=== PATIENT | male | born 1995 | race Caucasian/White ===

== ENCOUNTER 2020-08-09 03:23 | Emergency (ER) | payer SELFPAY ==
[~2020-08-09] VITALS: Ht 188 cm; Wt 74.8 kg
[2020-08-09] MEDS ORDERED: LORazepam 2MG/ML-1ML VIAL ONE (03:33)
[2020-08-09] MEDS ORDERED: levETIRAcetam 500 MG/5ML INJ IV ONE (03:36)
[2020-08-09] MEDS ORDERED: LORazepam 2MG/ML-1ML VIAL IV ONE (03:45)
[2020-08-09] MEDS ORDERED: SODIUM CHLORIDE 0.9% 1,000 ML IV ONE (04:15)
[2020-08-09 13:03] VITALS: BP 124/79
[2020-08-10] MEDS ORDERED: LEVE100012 PO (23:11)
[2020-08-10] MEDS ORDERED: OXCA600T3 PO (23:11)
== END 2020-08-09 13:46 | disposition home or self-care (01) ==
LOC: EDBD 03:23 → ER 03:30
DX: G40.909 Epilepsy, unspecified, not intractable, without status epilepticus (principal)
CPT/HCPCS: 96361; 96365; 96375; 99285; J1953; J2060; J7060

== ENCOUNTER 2020-08-09 20:35 | Inpatient (IN) | payer OTHER ==
[~2020-08-09] VITALS: Ht 188 cm; Wt 83.0 kg
[2020-08-09 22:32] LABS: Basophils # (auto) 0.1 10 ^3/uL (0-0.2); Basophils % (auto) 0.5 % (0.0-2.0); Eosinophils # (auto) 0 10 ^3/uL (0-0.8); Eosinophils % (auto) 0.1 % (0.0-7.0); Hematocrit 51.4 % (41.0-53.0); Hemoglobin 17.5 g/dL (13.5-17.5); Lymphocytes # (auto) 2.5 10 ^3/uL (0.4-5.4); Lymphocytes % (auto) 19.6 % (10.0-50.0); Mean Corpuscular Hemoglobin 30.2 pg (28.0-32.0); Mean Corpuscular Hgb Conc. 33.9 g/dL (32.0-36.0); Monocytes # (auto) 1.1 10 ^3/uL (0-1.3); Monocytes % (auto) 9.1 % (0.0-12.0); Neutrophils # (auto) 8.9 10 ^3/uL (1.6-8.6); Neutrophils % (auto) 70.7 % (37.0-80.0); Nucleated Red Blood Cells % 0.1 %; Platelet Count (auto) 222 10^3/uL (140-450); Red Blood Cells 5.78 10^6/uL (4.5-5.90); White Blood Cell 12.6 10^3/uL (4.4-10.8)
[2020-08-09 22:50] LABS: Calcium 9.5 mg/dL (8.5-10.1); Magnesium 2.7 mg/dL (1.6-2.6); Potassium 3.3 mmol/L (3.5-5.1)
[2020-08-09 22:54] LABS: BUN/Creatinine Ratio 15.5; Bilirubin, Total 0.6 mg/dL (0.2-1.0)
[2020-08-09] MEDS ORDERED: LORazepam 2MG/ML-1ML VIAL IV ONE (23:00)
[2020-08-09 23:09] LABS: Urine Bacteria FEW /hpf (None Seen); Urine Blood 2+ /uL (Negative); Urine Mucus FEW (None Seen); Urine Specific Gravity 1.022 (1.001-1.035); Urine WBC 3 /hpf (0 - 3)
[2020-08-10] MEDS ORDERED: ACETAMINOPHEN 325 MG TAB PO PRN (03:00)
[2020-08-10] MEDS ORDERED: TEMAZEPAM 15 MG CAP PO PRN (03:00)
[2020-08-10] MEDS ORDERED: LABETALOL HCL 5 MG/ML 4ML SYRINGE IV ONE (03:00)
[2020-08-10] MEDS ORDERED: MORPHINE SULF INJ 2 MG/ML SYRINGE 1ML IV PRN (03:00)
[2020-08-10] MEDS ORDERED: POTASSIUM CHL 20MEQ/100ML 100 ML IV ONE (03:00)
[2020-08-10] MEDS ORDERED: NITROGLYCERIN 0.4 MG SL TAB SL PRN (03:00)
[2020-08-10] MEDS ORDERED: ONDANSETRON HCL 4 MG/2 ML VIAL IV PRN (03:00)
[2020-08-10] MEDS ORDERED: HALOPERIDOL LACTATE 5 MG/ML INJ VIAL ONE (03:06)
[2020-08-10] MEDS ORDERED: HALOPERIDOL LACTATE 5 MG/ML INJ VIAL IM ONE (03:15)
[2020-08-10] MEDS: LORazepam 2MG/ML-1ML VIAL IV PRN ×5 (04:38→07:58)
[2020-08-10] MEDS ORDERED: levETIRAcetam 500 MG/5ML INJ IV ONE (05:47)
[2020-08-10] MEDS ORDERED: PHENobarbital SODIUM INJ 600 MG in SODIUM CHL 0.9% 100 ML IV ONE (07:30)
[2020-08-10] MEDS ORDERED: LORazepam 2MG/ML-1ML VIAL ONE (07:55)
[2020-08-10] MEDS ORDERED: levETIRAcetam 500 MG TAB PO SCH (10:00)
[2020-08-10] MEDS: FAMOTIDINE 20 MG TAB PO SCH ×2 (10:00→21:25)
[2020-08-10] MEDS ORDERED: OXcarbazepine 300 MG TAB PO SCH ×2 (10:00→22:00)
[2020-08-10] MEDS ORDERED: cefTRIAXone 1GM/50ML D5W 50 ML IV ONE (16:30)
[2020-08-10 17:05] LABS: Alcohol, Urine < 3.0 mg/dL (0-10); Amphetamine Screen, Urine NEGATIVE (NEGATIVE); Barbiturate Scree,Urine POSITIVE (NEGATIVE); Benzodiazephine Screen, Urine POSITIVE (NEGATIVE); Cannabinoid Screen, Urine NEGATIVE (NEGATIVE); Cocaine Screen, Urine NEGATIVE (NEGATIVE); Opiate Scree,Urine NEGATIVE (NEGATIVE); Phencyclidine Screen, Urine NEGATIVE (NEGATIVE)
--- NOTE | 2020-08-10 20:25 | NUR ---
Admit to [facility] admitted to [facility] via gurney on monitor and storage bin tender, and portable 02. Patient transferred to bed, connected to unit monitoring and oxygen, and weighed by bed scale. Patient oriented to Viky be RN, unit, room, bed, and unit policies regarding patient care and visiting hours. All questions and concerns addressed, patient verbalized understanding. Patient arrived from ER via stretcher. Patient is A/OX3, very groggy but arousable to name. Patient able to answer questions, but falls back to sleep. Patient connected to bedside monitors. Right upper arm midline in place, patent and flushes well. Peripheral IV to right AC 18g also intact and patent. Physical assessment done- no skin integrity issues noted. Sanchez in place, draining light adebayo urine to gravity. Patient able to follow commands and turn/reposition self in bed without difficulty. Seizure precautions in place, rails padded. Fall precautions in place, bed exit alarm on,side rails up x 3.
[2020-08-10 20:30] VITALS: BP 142/79
--- NOTE | 2020-08-10 20:55 | NUR ---
AT BEDSIDE AT BEDSIDE
[2020-08-10] MEDS ORDERED: OXCA600T3 PO (23:11)
[2020-08-10] MEDS ORDERED: LEVE100012 PO (23:11)
[2020-08-11] VITALS (7 sets, daily range): BP systolic 111–134; BP diastolic 69–82
--- NOTE | 2020-08-11 05:06 | NUR ---
FAMILY PATIENTS MOTHER CALLED. CORRECT PASSWORD WAS PROVIDED. FAMILY UPDATED ON PATIENT STATUS, ALL QUESTIONS ANSWERED.
--- NOTE | 2020-08-11 05:30 | NUR ---
AM CARE PATIENT GIVEN PARTIAL BED BATH. LINEN AND GOWN CHANGED. PATIENT ABLE TO ASSIST WITH TURNS. SKIN REASSESSED AT THIS TIME, NO CHANGES NOTED.
[2020-08-11 05:51] LABS: Calcium 8.6 mg/dL (8.5-10.1); Potassium 3.6 mmol/L (3.5-5.1)
[2020-08-11 05:53] LABS: BUN/Creatinine Ratio 16.7
--- NOTE | 2020-08-11 07:00 | NUR ---
CLOSING PATIENT RESTING COMFORTABLY IN BED, CONNECTED TO CONTINUOS MONITOR. PATIENT STILL SLEEPY BUT EASILY AROUSABLE. NO SEIZURES DURING SHIFT. SEIZURE PRECAUTIONS IN PLACE, CALL LIGHT WITHIN REACH. WILL ENDORSE CARE TO DAYSHIFT RN.
--- NOTE | 2020-08-11 07:25 | NUR ---
REPORT RECEIVED FROM PROGRAM SUPERVISOR NURSE. PATIENT RESTING IN BED AT THIS TIME. RESPIRATIONS EVEN AND UNLABORED. NO SIGNS OF ACUTE DISTRESS NOTED. CALL LIGHT IN REACH, BED IN LOW POSITION. WILL CONTINUE TO MONITOR. Addendum: 08/11/20 at 1805 by Viky Lloyd RN SIDE RAILS PADDED AND PATIENT INSTRUCTED TO CALL FOR HELP AND PATIENT VERBALIZED UNDERSTANDING.
[2020-08-11] MEDS: cefTRIAXone 1GM/50ML D5W 50 ML IV SCH (08:17)
--- NOTE | 2020-08-11 08:41 | NUR ---
DR FELDMAN AT BEDSIDE TO ASSESS PATIENT AND DISCUSS PLAN OF CARE. PER MD CHANGE PATIENTS DIET TO SOFT DIET.
[2020-08-11] MEDS: FAMOTIDINE 20 MG TAB PO SCH ×2 (09:48→21:32)
[2020-08-11] MEDS: OXcarbazepine 300 MG TAB PO SCH ×2 (09:57→21:32)
--- NOTE | 2020-08-11 10:25 | NUR ---
DR PINO AT BEDSIDE TO ASSESS PATIENT AND DISCUSS PLAN OF CARE.
--- NOTE | 2020-08-11 11:07 | NUR ---
MANAGER OF LEARNING AT BEDSIDE.
--- NOTE | 2020-08-11 15:58 | NUR ---
REPORT GIVEN TO MELIZA RUSS TO ASSUME CARE OF PATIENTS. PATIENT IS RESTING IN BED AT THIS TIME ASLEEP. NO SIGNS OF ACUTE DISTRESS NOTED AT THIS TIME.
--- NOTE | 2020-08-11 16:00 | NUR ---
ASSESS- ASSUMED CARE OF PT. LYING IN BED AWAKE, ALERT AND ORIENTED TIMES FOUR. DENIES ANY PAIN OR DISCOMFORT. NO SZ. ACTIVITY NOTED. SZ. PRECAUTIONS IN PLACE. LUNGS CLEAR SHERI. INSPIRATORY AND EXPIRATORY. ON R/A. NO SOB. ABD. SOFT, FLAT, NON-TENDER. BOWEL SOUNDS ALL FOUR QUADRANTS. NO N/V. F/C TO GRAVITY WITH CLEAR LT. RIA URINE. RADIAL PULSES STRONG, PALPABLE SHERI. DORSALIS PEDAL PULSES STRONG, PALPABLE SHERI. NO EDEMA. SKIN INTACT. PT. MOVES ARMS SHERI. AND LOWER EXTREMITIES SHERI. WITHOUT DIFFICULTY. ABLE TO TURN SELF IN BED.
[2020-08-11 16:46] LABS: Urine Bacteria NONE SEEN /hpf (None Seen); Urine Blood 1+ /uL (Negative); Urine Mucus FEW (None Seen); Urine Specific Gravity 1.021 (1.001-1.035); Urine WBC 5 /hpf (0 - 3)
--- NOTE | 2020-08-11 17:00 | NUR ---
MOM VISITING AT BS PER DR. FELDMAN.
--- NOTE | 2020-08-11 19:40 | NUR ---
OPENING NOTE REPORT RECEIVED FROM DILLON RUSS PATIENT IS A/OX4, SLOW TO RESPOND, BUT ANSWERS ALL QUESTIONS APPROPRIATELY. PATIENT IS CONNECTED TO CONTINUOUS BEDSIDE MONITORS. HEART RATE IN 90'S, SPO2 AT 94% ON ROOM AIR. PHYSICAL ASSESSMENT DONE- SEE INTERVENTIONS. NO SKIN INTEGRITY ISSUES NOTED. MIDLINE TO RIGHT UPPER ARM INTACT AND PATENT. PERIPHERAL IV 18G TO RIGHT AC INTACT AND PATENT. ROSS DRAINING LIGHT RIA COLORED URINE TO GRAVITY. POC DISCUSSED WITH PATIENT. SEIZURE AND FALL PRECAUTIONS IN PLACE.
--- NOTE | 2020-08-11 21:46 | NUR ---
SPOKE WITH HOSPITALIST SPOKE WITH THERESE MOYER REGARDING PATIENT POSITIVE BLOOD CULTURE OF GRAM POSITIVE COCCI IN CLUSTERS. NO NEW ORDERS GIVEN AT THIS TIME.
--- NOTE | 2020-08-11 22:04 | NUR ---
CALL BACK FROM HOSPITALIST NEW ORDER RECEIVED FROM HOSPITALIST AIDEN MOYER REGARDING POSITIVE BLOOD CULTURE. LABS REVIEWED WITH HOSPITALIST. TELEPHONE ORDER FOR IV VANCO 1GM Q12H. WILL CARRY OUT ORDER.
[2020-08-11] MEDS ORDERED: VANCOMYCIN 1GM/250ML 250 ML IV SCH (23:00)
--- NOTE | 2020-08-11 23:12 | NUR ---
NEW ORDER PER HOSPITALIST MARGO HANCOCK TO DOSE VANCO PER PHARMACY PROTOCOL.
--- NOTE | 2020-08-11 23:16 | NUR ---
PHARMACY SPOKE WITH CRUSHER PHARMACIST RAMO FROM [facility]. PHARMACIST MADE AWARE OF VANCO TO BE ADJUSTED PER PHARMACY PROTOCOL.
[2020-08-12 03:22] LABS: Basophils # (auto) 0.1 10 ^3/uL (0-0.2); Basophils % (auto) 1.3 % (0.0-2.0); Eosinophils # (auto) 0.2 10 ^3/uL (0-0.8); Eosinophils % (auto) 2.1 % (0.0-7.0); Hemoglobin 16.8 g/dL (13.5-17.5); Lymphocytes # (auto) 2.6 10 ^3/uL (0.4-5.4); Lymphocytes % (auto) 35.7 % (10.0-50.0); Mean Corpuscular Hemoglobin 30.2 pg (28.0-32.0); Mean Corpuscular Hgb Conc. 34.2 g/dL (32.0-36.0); Mean Corpuscular Volume 88.2 fL (80.0-100.0); Monocytes # (auto) 0.7 10 ^3/uL (0-1.3); Neutrophils # (auto) 3.7 10 ^3/uL (1.6-8.6); Neutrophils % (auto) 50.9 % (37.0-80.0); Nucleated Red Blood Cells % 0.1 %; Platelet Count (auto) 192 10^3/uL (140-450); Red Blood Cells 5.55 10^6/uL (4.5-5.90); White Blood Cell 7.3 10^3/uL (4.4-10.8)
[2020-08-12 03:42] LABS: Albumin 3.9 g/dL (3.4-5.0); Calcium 8.8 mg/dL (8.5-10.1); Magnesium 2.5 mg/dL (1.6-2.6); Potassium 3.7 mmol/L (3.5-5.1)
[2020-08-12 03:47] LABS: BUN/Creatinine Ratio 18.1; Bilirubin, Total 0.9 mg/dL (0.2-1.0); Total Protein 6.7 g/dL (6.4-8.2)
[2020-08-12 04:00] VITALS: BP 133/80
--- NOTE | 2020-08-12 04:42 | NUR ---
AM CARE PATIENT GIVEN COMPLETE BED BATH. CHG WIPES USED TO CLEAN PATIENT. WARM SOAPY WASH CLOTHS USED FOR PATIENTS FACE. COMPLETE LINEN CHANGE PROVIDED. GOWN CHANGE ALSO PROVIDED. PATIENT ABLE TO HELP WITH TURNS AND REPOSITIONS. SKIN REASSESSED AT THIS TIME, NO CHANGES.
--- NOTE | 2020-08-12 07:03 | NUR ---
CLOSING PATIENT IS SLEEPING AND CONNECTED TO CONTINUOUS BEDSIDE MONITORS. NO SIGNS OF DISTRESS. NO SEIZURE ACTIVITY DURING SHIFT. SEIZURE AND FALL PRECAUTIONS IN PLACE, CALL LIGHT WITHIN REACH. WILL ENDORSE CARE TO AM SHIFT RN.
--- NOTE | 2020-08-12 07:50 | NUR ---
Opening Shift Note Assumed care of patient, patient lying on the bed, woke up by calling his name, patient smiling back, able to tell me his , place and time. No S/S of distress/SOB or pain noted. Breakfast tray provided, patient sitting up on the bed, assisted with breakfast but patient able help himself. Mouth care provided. Instructed on POC and to call for assist PRN, will continue to monitor for changes Q1hr and PRN.
[2020-08-12 08:00] VITALS: BP 106/39
[2020-08-12] MEDS ORDERED: CYANOCOBALAMIN (B-12) 1000 MCG/1 ML VIAL SUBCUT ONE (08:00)
[2020-08-12] MEDS ORDERED: VANCOMYCIN PER PHARMACY 0 MG IV SCH (08:30)
[2020-08-12] MEDS ORDERED: VANCOMYCIN 1GM/250ML 250 ML IV ONE (08:42)
[2020-08-12] MEDS: VANCOMYCIN 1GM/250ML 250 ML IV SCH ×2 (08:46→15:53)
[2020-08-12] MEDS: cefTRIAXone 1GM/50ML D5W 50 ML IV SCH (08:46)
--- NOTE | 2020-08-12 09:00 | NUR ---
Patient had breakfast around 80%, no N/V noted.
--- NOTE | 2020-08-12 09:20 | NUR ---
Dr. Pace at the bedside, plan of care discussed with patient, plan to D/C home today, okay to transfer to [place].
[2020-08-12] MEDS: OXcarbazepine 300 MG TAB PO SCH (10:04)
[2020-08-12] MEDS: FAMOTIDINE 20 MG TAB PO SCH (10:04)
--- NOTE | 2020-08-12 10:10 | NUR ---
Medication given, patient still complaining dizziness and sleepy, able to follow direction but taking time for thinking and talking or answering the questions, no Seizures noted. Patient able to transfer himself from bed to wheelchair with 1 assist for safety.
--- NOTE | 2020-08-12 10:26 | NUR ---
[facility] pt transferred to floor [facility]UMBERTO YOUNG transferred to [address]B via wheel chair and room air. All patient medications and personal belongings transferred with patient to receiving floor. Patient care transferred to Cristina RUSS. Spoke to his mom on the phone regarding transfer and POC.
--- NOTE | 2020-08-12 10:30 | NUR ---
CARE RESUMED Resumed care of patient, patient lying on the bed, arousable to name, able to tell me his . With periods of confusion however easily reoriented. No S/S of distress/SOB or pain noted. Instructed on POC and to call for assist PRN, will continue to monitor for changes Q1hr and PRN. Seizure precautions in place.
[2020-08-12 10:50] VITALS: BP 138/82
[2020-08-12 12:35] VITALS: BP 128/86
--- NOTE | 2020-08-12 15:15 | NUR ---
SPOKE TO PATIENTS MOM HIMANSHU AT [phone] AFTER CORRECT PW PROVIDED. GAVE FULL DISCHARGE INSTRUCTIONS TO HIMANSHU, WITH VERBALIZED UNDERSTANDING.
[2020-08-12 15:26] VITALS: BP 138/82
--- NOTE | 2020-08-12 15:39 | NUR ---
Dr. FELDMAN AT [facility]
--- NOTE | 2020-08-12 16:33 | NUR ---
Discharge instructions given as ordered. Encourage to follow up with PMD as instructed. All questions and concerns addressed. Patient and mother Kalie verbalized understanding. Medication reconciliation form completed and copy given to patient. IV removed with catheter intact, pressure dressing applied, vergara catheter removed. Patient taken to vehicle via wheelchair with all personal belongings, accompanied by staff. No distress noted at time of departure.
== END 2020-08-12 16:30 | disposition home or self-care (01) | DRG 53 ==
LOC: ER 20:35 → TELE 20:36 → DOU IN ICU 08-10 20:13 → TELE-WESTW 08-12 10:39
PROVIDERS: ADMIT Nurse Practitioner; ATTEND Internal Medicine
DX: G40.401 Other generalized epilepsy and epileptic syndromes, not intractable, with status epilepticus (principal); E87.6 Hypokalemia; I10 Essential (primary) hypertension; R31.9 Hematuria, unspecified; R65.10 Systemic inflammatory response syndrome (SIRS) of non-infectious origin without acute organ dysfunction
CPT/HCPCS: 36415; 70450; 71045; 76775; 80048; 80053; 80156; 80307; 81001; 82542; 82607; 83735; 84443; 85025; 87040; 87077; 87086; 87186; 95819; G0378; J0696; J3480; J7060